=== PATIENT | female | born 1975 | race Caucasian/White ===

== ENCOUNTER 2020-06-14 18:19 | Emergency (ER) | payer OTHER, MEDICAID ==
[~2020-06-14] VITALS: Ht 162.6 cm; Wt 52.2 kg
[~2020-06-14 18:19] MED LIST: NORCO 5-325 TA1 EACH PO
[2020-06-14 19:14] LABS: ABSOLUTE BASOPHILS 0.1 thou/uL (0.0-0.2); ABSOLUTE EOSINOPHILS 0.1 thou/uL (0.0-0.7); ABSOLUTE LYMPHOCYTES 1.4 thou/uL (0.8-5.3); ABSOLUTE MONOCYTES 0.5 thou/uL (0.0-1.2); ABSOLUTE NEUTROPHILS 4.6 thou/uL (1.6-8.1); BASOPHILS 0.9 %; EOSINOPHILS 1.3 %; HEMOGLOBIN 13.5 gm/dL (12.0-15.0); LYMPHOCYTES 21.1 %; MCH 28.7 pg (26.0-34.0); MCHC 33.7 g/dL (28.0-37.0); MONOCYTES 7.8 %; MPV 9.1 fl. (7.2-11.1); NUCLEATED RBCS 0 /100WBC; PLATELET COUNT* 175 thou/uL (150-400); POLYS 68.9 %; RBC 4.71 mil/uL (4.20-5.00); RDW-CV 18.5 % (10.5-14.5); WBC 6.7 thou/uL (4.0-11.0)
[2020-06-14 19:24] LABS: POTASSIUM 4.1 mmol/L (3.5-5.1)
[2020-06-14 19:34] LABS: ALBUMIN 3.9 g/dL (3.4-5.0); MAGNESIUM 2.1 mg/dL (1.8-2.4); TOTAL BILIRUBIN 0.2 mg/dL (<0.1-1.0); TOTAL PROTEIN 7.6 g/dL (6.4-8.2)
[2020-06-14] MEDS ORDERED: LORCET 5-325 M1 EACH PO (19:57)
[2020-06-14] MEDS ORDERED: FLEXERIL PO (19:57)
[2020-06-14 20:13] VITALS: BP 108/73
--- NOTE | 2020-06-15 10:27 | EKG ---
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: : 1975 Requested By: Shane Cruz Order Number: [id number] MD: Dev Rizvi Measurements Intervals [place] Rate: 106 P: 85 DC: 150 QRS: 260 QRSD: 85 T: 51 QT: 334 QTc: 444 Interpretive Statements Sinus tachycardia Right atrial enlargement right axis deviation Baseline wander in lead(s) III Compared to ECG 04/26/2017 01:00:07 Sinus rhythm no longer present Electronically Signed On 06-15-2020 10:27:17 CDT by Dev Rizvi [email or web address] <ELECTRONICALLY SIGNED> By: Dev Rizvi MD, FACC 06/15/20 1027 1825 1825 Dev Rizvi MD, [facility] /EPI
== END 2020-06-14 20:00 | disposition home or self-care (01) ==
LOC: M.ERS 18:19
PROVIDERS: Emergency Medicine Emergency Medical Services
DX: M62.830 Muscle spasm of back (principal); J44.9 Chronic obstructive pulmonary disease, unspecified; F17.210 Nicotine dependence, cigarettes, uncomplicated; Z98.51 Tubal ligation status

== ENCOUNTER 2020-12-25 13:19 | Emergency (ER) | payer OTHER, MEDICAID ==
[~2020-12-25] VITALS: Ht 160 cm; Wt 52.2 kg
[~2020-12-25 13:19] MED LIST changes: +FLEXERIL PO; +IBUPROFEN 800800 MG PO; +LORCET 5-325 M1 EACH PO
[2020-12-25 14:54] LABS: ABSOLUTE BASOPHILS 0.1 thou/uL (0.0-0.2); ABSOLUTE EOSINOPHILS 0.1 thou/uL (0.0-0.7); ABSOLUTE LYMPHOCYTES 1.5 thou/uL (0.8-5.3); ABSOLUTE MONOCYTES 0.9 thou/uL (0.0-1.2); ABSOLUTE NEUTROPHILS 10.7 thou/uL (1.6-8.1); BASOPHILS 0.8 %; EOSINOPHILS 0.8 %; HEMATOCRIT 42.9 % (37.0-47.0); HEMOGLOBIN 13.7 gm/dL (12.0-15.0); LYMPHOCYTES 11.5 %; MCH 27.7 pg (26.0-34.0); MCHC 31.9 g/dL (28.0-37.0); MCV 86.8 fL (80.0-100.0); MPV 9.6 fl. (7.2-11.1); NUCLEATED RBCS 0 /100WBC; PLATELET COUNT* 220 thou/uL (150-400); POLYS 79.9 %; RBC 4.94 mil/uL (4.20-5.00); WBC 13.4 thou/uL (4.0-11.0)
[2020-12-25 15:00] LABS: CALCIUM 9.3 mg/dL (8.5-10.1); CREATININE 0.9 mg/dL (0.6-1.3); POTASSIUM 4.2 mmol/L (3.5-5.1)
[2020-12-25 15:05] LABS: ALBUMIN 4.1 g/dL (3.4-5.0); TOTAL BILIRUBIN 0.4 mg/dL (<0.1-1.0); TOTAL PROTEIN 8.3 g/dL (6.4-8.2)
[2020-12-25] MEDS ORDERED: ATIVAN1 M1 PO ×2 (15:19)
[2020-12-25 15:28] VITALS: BP 112/76
--- NOTE | 2020-12-25 15:51 | EKG ---
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: Danya : 1975 Requested By: Giovanni Woo Order Number: [id number] MD: Dev Rizvi Measurements Intervals [place] Rate: 113 P: 85 W[place]: 132 QRS: 260 QRSD: 79 T: 60 QT: 308 QTc: 423 Interpretive Statements Sinus tachycardia Biatrial enlargement LAD, consider left anterior fascicular block Abnormal R-wave progression, late transition Compared to ECG 06/14/2020 18:25:06 no change Electronically Signed On 12-25-2020 15:51:28 CDT by Dev Rizvi [email or web address] <ELECTRONICALLY SIGNED> By: Dev Rizvi MD, [facility] 12/25/20 1551 1419 1419 Dev Rizvi MD, [facility] /EPI
== END 2020-12-25 15:29 | disposition home or self-care (01) ==
LOC: M.ERS 13:19
PROVIDERS: Physician Assistant
DX: F41.9 Anxiety disorder, unspecified (principal); R06.02 Shortness of breath; R07.89 Other chest pain; J44.9 Chronic obstructive pulmonary disease, unspecified; F17.210 Nicotine dependence, cigarettes, uncomplicated; Z98.51 Tubal ligation status

== ENCOUNTER → 2021-10-20 | Emergency (ER) | payer OTHER, MEDICAID ==
[~2021-10-20] VITALS: Ht 162.6 cm; Wt 49.9 kg
[~2021-10-20] MED LIST changes: +ATIVAN1 M1 PO; +MEDROLDOSEPACK PO; +NORFLEX100 MG PO
[2021-10-20 15:12] VITALS: BP 132/92
== END ==
LOC: M.ERS 13:49
DX: M26.601 Right temporomandibular joint disorder, unspecified (principal); J44.9 Chronic obstructive pulmonary disease, unspecified; F17.210 Nicotine dependence, cigarettes, uncomplicated; Z98.51 Tubal ligation status